=== PATIENT | female | born 1975 | race Caucasian/White ===

== ENCOUNTER 2017-07-21 12:52 | Emergency (ER) | END 2017-07-21 13:21 | disposition home or self-care (01) ==

== ENCOUNTER 2018-05-31 12:39 | Emergency (ER) | END 2018-05-31 14:49 | disposition home or self-care (01) ==

== ENCOUNTER 2018-06-02 12:54 | Emergency (ER) | payer MEDICAID ==
[~2018-06-02] VITALS: Wt 73.5 kg
[~2018-06-02 12:54] MED LIST: AZIT250T PO; BEN50 PO; HC30CR25 TOP; IBUP-1542 PO; PHEN118L PO
[2018-06-02 12:55] VITALS: BP 123/71; PULSE 78; RESP 18
[2018-06-02] MEDS ORDERED: BEN50 PO (13:21)
[2018-06-02] MEDS ORDERED: PRED50TA PO (13:21)
[2018-06-02] MEDS ORDERED: FAMO-96 PO (13:22)
--- NOTE | 2018-06-02 13:29 | ERD ---
ER Documentation Chief Complaint Chief Complaint SKIN RASH TO FOREAM X 4 DAYS HPI 43-year-old female presents to the urgency department complaining of itchy red rash on her forearms for the past 4 days. Patient states that she was evaluated at this facility on Sunday and received Benadryl in which she states that it does not work for her. Last dose was last night. Denies any chest pain, shortness of breath, recent new creams, fevers ROS All systems reviewed and are negative except as per history of present illness. Medications Home Meds Active Scripts Famotidine* (Pepcid*) 20 Mg Tablet, 20 MG PO BID, #14 TAB Prov:WILLIAM HOOVER PA-C 06/02/18 Diphenhydramine Hcl* (Benadryl*) 50 Mg Cap, 50 MG PO Q6H PRN for ITCHING/RASH, #30 CAP Prov:WILLIAM HOOVER PA-C 06/02/18 Prednisone* (Prednisone*) 50 Mg Tablet, 50 MG PO DAILY for 5 Days, TAB Prov:WILLIAM HOOVER PA-C 06/02/18 Hydrocortisone* Topical (Hydrocortisone* Topical) 2.5%-28.3 Gm Cream..g., 1 APPLIC TOP BID, #1 TUB Prov:THERESA BURK PA-C 05/31/18 Diphenhydramine Hcl* (Benadryl*) 50 Mg Cap, 50 MG PO Q6H PRN for ITCHING/RASH, #30 CAP Prov:THERESA BURK PA-C 05/31/18 Phenylephrine/Diphenhydramine (DIMETAPP COLD & CONGEST LIQUID) 118 Ml Liquid, 5 ML PO Q4H PRN for COUGH, #4 OZ Prov:VANESSA GUILLEN PA-C 07/21/17 Ibuprofen* (Motrin*) 600 Mg Tab, 600 MG PO Q6, #30 TAB Prov:VANESSA GUILLEN PA-C 07/21/17 Azithromycin* (Zithromax*) 250 Mg Tablet, 250 MG PO .ZPACK DIRECTED, #6 TAB TAKE 500 MG (2 TABS) THE FIRST DAY THEN 250 MG (1 TAB) DAYS 2-5 Prov:VANESSA GUILLEN PA-C 07/21/17 Allergies Allergies: Coded Allergies: No Known Allergy (Unverified , 12/24/11) PMhx/Soc Medical and Surgical Hx: pt denies Medical Hx, pt denies Surgical Hx History of Surgery: No Anesthesia Reaction: No Hx Neurological Disorder: No Hx Respiratory Disorders: No Hx Cardiac Disorders: No Hx Psychiatric Problems: No Hx Miscellaneous Medical Probl: No Hx Alcohol Use: No Hx Substance Use: No Hx Tobacco Use: No Smoking Status: Never smoker Physical Exam Vitals Vital Signs Date Temp Pulse Resp B/P (MAP) Pulse Ox O2 O2 Flow FiO2 Time Delivery Rate 06/02/18 99.1 78 18 123/71 99 12:55 (88) Physical Exam Const: No acute distress Head: Atraumatic Eyes: Normal Conjunctiva ENT: Normal External Ears, Nose and Mouth. Neck: Full range of motion. No meningismus. Resp: Clear to auscultation bilaterally Cardio: Regular rate and rhythm, no murmurs Abd: Soft, non tender, non distended. Normal bowel sounds Skin: Maculopapular rash throughout forearms Back: No midline or flank tenderness Ext: No cyanosis, or edema Neur: Awake and alert Psych: Normal Mood and Affect Results 24 hrs Current Medications Medications Dose Sig/Kaila Start Time Status Last (Trade) Ordered Route PRN Stop Time Admin Dose Reason Admin 50 mg ONCE ONCE 06/02/18 DC 06/02/18 Diphenhydrami IM 13:30 13:33 ne HCl 06/02/18 (Benadryl) 13:31 125 mg ONCE ONCE 06/02/18 DC 06/02/18 Methylprednis IM 13:30 13:33 olone Sodium 06/02/18 Succinate 13:31 (Solu-Medrol) Procedures/MDM 43-year-old female presents with pruritic maculopapular rash throughout forearms, this is likely due to allergic/contact dermatitis. Signs of life- threatening rash or anaphylaxis. Patient has been evaluated at this facility and received Benadryl prescription for hydrocortisone cream. Benadryl and Solu- Medrol IM was administered in the ED. she is stable to be discharged home with instructions to follow-up with a website developer and a prescription for Pepcid, Benadryl and prednisone. I have given her return precautions she understands and agrees with plan. Departure Diagnosis: Primary Impression: Rash Condition: Stable Patient Instructions: Self-Care for Skin Rashes, Hives Referrals: NO PRIMARY,CARE PHYSICIAN (PCP) Additional Instructions: Visite a kennedy mdico maana para un EXAMEN.Regrese a estas instalaciones si no se mejora cherri esperbamos o cherri le dijimos. [place] toda la medicina jesus y cherri se le indic. Regrese a estas instalaciones si no se mejora cherri esperbamos o cherri le dijimos. WILLIAM HOOVER PA-C Jun 02, 2018 13:29
[2018-06-02] MEDS ORDERED: DIPHENHYDRAMINE 50 MG INJ IM ONE (13:30)
[2018-06-02] MEDS ORDERED: METHYLPREDNISOLONE 125 MG INJ IM ONE (13:30)
[2018-06-09] MEDS ORDERED: D-ME473S2 PO (14:51)
[2018-06-09] MEDS ORDERED: IBUP-1542 PO (14:51)
== END 2018-06-02 14:20 | disposition home or self-care (01) ==
LOC: FTE 12:54
DX: R21 Rash and other nonspecific skin eruption (principal)
CPT/HCPCS: J1200; J2930; 96372

== ENCOUNTER 2018-06-09 11:49 | Emergency (ER) | END 2018-06-09 14:58 | disposition home or self-care (01) ==